=== PATIENT | female | born 1995 | race Caucasian/White ===

== ENCOUNTER 2017-01-05 20:00 | Emergency (ER) | payer OTHER ==
[~2017-01-05] VITALS: Ht 162.6 cm; Wt 68.0 kg
[2017-01-05 20:04] VITALS: BP 109/74; PULSE 79; RESP 18; O2SAT 100
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
[2017-01-05 21:40] LABS: BASOPHILS % (AUTO) 0.4 % (0-3); EOSINOPHILS % (AUTO) 1.2 % (0-5); MONOCYTES % (AUTO) 9.3 % (4-12); Mean Corpuscular Hemoglobin 30.1 pg (27.0-35.0); NEUTROPHILS % (AUTO) 47.9 % (40-74); Platelet Count 264 bil/L (150-400)
== END 2017-01-05 22:15 | disposition home or self-care (01) ==
LOC: SED 20:00
DX: S30.1XXA Contusion of abdominal wall, initial encounter (principal); N93.9 Abnormal uterine and vaginal bleeding, unspecified; V43.52XA Car driver injured in collision with other type car in traffic accident, initial encounter; Y93.89 Activity, other specified; Y92.410 Unspecified street and highway as the place of occurrence of the external cause; Y99.8 Other external cause status